=== PATIENT | female | born 1950 | race Caucasian/White ===

== ENCOUNTER → 2023-07-16 | Day surgery (SDC) | payer MEDICARE ==
[~2023-07-16] MED LIST: DIPRIVAN 200 MG/20 ML IV ONE; Depo-Medrol 40 MG/ML IM ONE; Lactated Ringers 1,000 ML IV ONE; Sodium Chloride 0.9(Preservative Free) 10 ML IJ ONE; XYLOCAINE-MPF 1% 5ML SDV IJ ONE
--- NOTE | 2023-07-16 15:18 | XRAY ---
Indication: Lumbar JAIDA. Intraoperative fluoroscopy provided for 50 seconds. 6 digital spot images submitted for interpretation demonstrates posterior needle tip projecting posterior to lumbosacral junction. Small amount of contrast injected for needle tip placement. Correlate with intraoperative findings/report.
--- NOTE | 2023-07-16 16:56 | XRAY ---
50 seconds of fluoroscopy was used in surgery for a lumbar JAIDA.
== END ==
LOC: SDC-PAIN 11:53
PROVIDERS: ATTEND Psychiatry & Neurology Pain Medicine
DX: M54.16 Radiculopathy, lumbar region (principal)
CPT/HCPCS: 62323; 72100; 77003; J1030; J2704; Q9966

== ENCOUNTER 2023-09-03 11:35 | Day surgery (SDC) | payer MEDICARE ==
[2023-09-03] MEDS ORDERED: Sodium Chloride 0.9(Preservative Free) 10 ML IJ ONE (11:36)
[2023-09-03] MEDS ORDERED: Depo-Medrol 40 MG/ML IM ONE (11:36)
[2023-09-03] MEDS ORDERED: Lactated Ringers 1,000 ML IV ONE (13:43)
[2023-09-03] MEDS ORDERED: DIPRIVAN 200 MG/20 ML IV ONE (13:44)
--- NOTE | 2023-09-03 17:03 | XRAY ---
Indication: Left L4-S1 transforaminal JAIDA. Intraoperative fluoroscopy provided for 26 seconds. 4 digital spot images submitted for interpretation demonstrates posterior needle tips projecting over left L4 and L5 nerve roots. Small amount of contrast injected for needle tip placement. Correlate with intraoperative findings/report.
--- NOTE | 2023-09-03 17:41 | XRAY ---
26 seconds of fluoroscopy was used in surgery for a left L4-S1 transforaminal JAIDA.
== END 2023-09-03 14:45 | disposition home or self-care (01) ==
LOC: SDC-PAIN 11:35
PROVIDERS: ATTEND Psychiatry & Neurology Pain Medicine
DX: M54.16 Radiculopathy, lumbar region (principal)
CPT/HCPCS: 64483; 64484; 72100; 77003; J1030; J2704; Q9966

== ENCOUNTER 2023-12-17 11:22 | Day surgery (SDC) | payer MEDICARE ==
[2023-12-17] MEDS ORDERED: XYLOCAINE-MPF 1% 5ML SDV IJ ONE (11:23)
[2023-12-17] MEDS ORDERED: Decadron 4 MG INJ IV ONE (11:23)
[2023-12-17] MEDS ORDERED: Sodium Chloride 0.9(Preservative Free) 10 ML IJ ONE (11:23)
[2023-12-17] MEDS ORDERED: Depo-Medrol 40 MG/ML IM ONE (11:23)
[2023-12-17] MEDS ORDERED: DIPRIVAN 200 MG/20 ML IV ONE (12:22)
[2023-12-17] MEDS ORDERED: Lactated Ringers 1,000 ML IV ONE (12:27)
--- NOTE | 2023-12-17 15:01 | XRAY ---
Indication: Caudal JAIDA. Intraoperative fluoroscopy provided for 9 seconds. 3 digital spot image submitted for interpretation demonstrates caudal needle tip projecting mid sacrum. Small amount of contrast injected free needle tip placement. Correlate with intraoperative findings/report.
--- NOTE | 2023-12-17 15:01 | XRAY ---
Indication: Bilateral piriformis injection. Intraoperative fluoroscopy provided for 14 seconds. 2 digital spot image submitted for interpretation demonstrates posterior needle tips projecting over the left and right piriformis. Small amount of contrast injected free needle tip placement. Correlate with intraoperative findings/report.
--- NOTE | 2023-12-17 17:20 | XRAY ---
14 seconds of fluoroscopy was used in surgery for a bilateral piriformis injection.
--- NOTE | 2023-12-17 17:20 | XRAY ---
9 seconds of fluoroscopy was used in surgery for a caudal JAIDA.
== END 2023-12-17 12:56 | disposition home or self-care (01) ==
LOC: SDC-PAIN 11:22
PROVIDERS: ATTEND Psychiatry & Neurology Pain Medicine
DX: M54.16 Radiculopathy, lumbar region (principal)
CPT/HCPCS: 20552; 72170; 72220; 77002; 77003; 99100; J1010; J1100; J2704; Q9966